=== PATIENT | male | born 1980 | race Caucasian/White ===

== ENCOUNTER 2016-10-03 15:53 | Emergency (ER) | payer MEDICAID ==
[2013-07-02 16:58] VITALS: BMI 28.2
[~2016-10-03 15:53] MED LIST: GLIPIZIDE10 MG PO; GLUCOPHAGE1000 MG PO; HUMALOG 30100 UNITS/ SC; LANTUS SOL100 UNIT/1 SQ; ZOLOFT50 MG PO
== END 2016-10-03 18:35 | disposition home or self-care (01) ==
LOC: D.ER 15:53
DX: F32.9 Major depressive disorder, single episode, unspecified (principal); F41.9 Anxiety disorder, unspecified; F17.200 Nicotine dependence, unspecified, uncomplicated